=== PATIENT | male | born 1985 | race Caucasian/White ===

== ENCOUNTER 2016-10-31 00:21 | Emergency (ER) | payer OTHER ==
[~2016-10-31] VITALS: Ht 180.3 cm; Wt 126.5 kg
[2016-10-31] MEDS ORDERED: NAPROSYN500 MG PO (01:05)
[2016-10-31 01:16] VITALS: BP 131/87
== END 2016-10-31 01:16 | disposition home or self-care (01) ==
LOC: EME 00:21
DX: S43.401A Unspecified sprain of right shoulder joint, initial encounter (principal); X50.9XXA Other and unspecified overexertion or strenuous movements or postures, initial encounter; Z88.2 Allergy status to sulfonamides; Z88.0 Allergy status to penicillin
CPT/HCPCS: 99281; 99283